=== PATIENT | female | born 1980 | race Caucasian/White ===

== ENCOUNTER 2020-10-18 08:28 | Emergency (ER) | payer OTHER, BC ==
[~2020-10-18] VITALS: Ht 154.9 cm; Wt 72.6 kg
[2020-10-18] MEDS ORDERED: CYCLOBENZAPRINE5 M3 PO (10:22)
== END 2020-10-18 10:35 | disposition home or self-care (01) ==
LOC: ED 08:28
DX: Z04.1 Encounter for examination and observation following transport accident (principal); Z98.890 Other specified postprocedural states; V49.9XXA Car occupant (driver) (passenger) injured in unspecified traffic accident, initial encounter; Y93.89 Activity, other specified; Y92.89 Other specified places as the place of occurrence of the external cause; Y99.8 Other external cause status